=== PATIENT | female | born 1990 | race Caucasian/White ===

== ENCOUNTER → 2017-10-26 11:15 | Outpatient (CLI) | payer MEDICAID, SELFPAY ==
[2017-10-30 11:34] LABS: HPV Reflexed? NOT INDICATED
== END ==
PROVIDERS: Family Provider Student in an Organized Health Care Education/Training Program; PCP Student in an Organized Health Care Education/Training Program; Visit Provider Obstetrics & Gynecology
DX: R87.610 Atypical squamous cells of undetermined significance on cytologic smear of cervix (ASC-US) (principal)
CPT/HCPCS: 88175; G0145

== ENCOUNTER → 2018-12-27 10:39 | Outpatient (CLI) | payer MEDICAID, SELFPAY ==
[2016-08-18 07:39] VITALS: BMI 22.8
[2019-01-01 17:39] LABS: HPV Reflexed? NOT INDICATED
== END ==
PROVIDERS: Family Provider Student in an Organized Health Care Education/Training Program; PCP Student in an Organized Health Care Education/Training Program; Referring Provider Obstetrics & Gynecology; Visit Provider Obstetrics & Gynecology
DX: Z12.4 Encounter for screening for malignant neoplasm of cervix (principal)
CPT/HCPCS: 88175; G0145